=== PATIENT | female | born 1940 | race Caucasian/White ===

== ENCOUNTER 2017-02-10 07:48 | Day surgery (SDC) | payer MEDICARE, BC ==
[~2017-02-10 07:48] MED LIST: RINGERS SOLUTION,LACTATED 1,000 ML IV PRN
--- OUTSIDE RECORDS SUMMARY | 2017-02-10 09:01 | XMS REPORT | Continuity of Care Document ---
:1940 Author Organization [facility] ([facility]) Address [address] [place] [address] Phone [phone] Care Team Providers Name Role Phone Jamie Espino Primary Care Provider [phone] Source Comments This disclosure is being made pursuant to the Care Everywhere program, applicable federal and state laws, and may not contain all informaitonavailable regarding this patient.[facility] ([facility]) Active Allergies and Adverse Reactions No Known Allergies Current Medications Prescription Sig. Disp. Refills Start Date End Date Status OTHER 1 Tab daily. Vitamin Active D 1000 units acetaminophen 325 mg Take 1-2 Tabs by 60 Tab 2 2011 Active tablet mouth every 4 hours as needed for Pain. Do not exceed 4000 mg of total acetaminophen in 24 hours. Indications: Pain levothyroxine 25 mcg Take 1 Tab by mouth 12/21/2014 Active tablet daily albuterol (PROAIR inhale 1 puff by 05/16/2014 Active HFA) 90 inhalation route mcg/Actuation every 4 - 6 hours as inhaler needed budesonide-formotero inhale 2 puff by 05/16/2014 Active l (SYMBICORT) inhalation route 2 160-4.5 times every day in mcg/Actuation the morning and inhaler evening ezetimibe (ZETIA) 10 Take 1 Tab by mouth 05/16/2014 Active mg tablet daily warfarin 3 mg tablet take 2 tablet by 12/13/2014 Active oral route every day furosemide 40 mg Take 80 mg by mouth Active tablet 2 times daily colestipol 1 gram Take 4 g by mouth 3 Active tablet times daily. clonazePAM 1 mg 5 02/04/2016 Active tablet mirtazapine 30 mg 15 mg. 5 02/04/2016 Active tablet rOPINIRole 0.5 mg 11 02/04/2016 Active tablet atorvastatin 20 mg 10 mg daily. 11 05/04/2016 Active tablet potassium chloride Take 20 mEq by mouth 11 05/04/2016 Active 20 mEq tablet 2 times daily. metoPROLol succinate Take 1 tablet (25 mg 90 tablet 3 11/20/2016 Active 25 mg XL tablet total) by mouth daily. 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 08/06/2015 Overview: non-obstructive ostial LAD disease and ostial second diagonal disease managed medically Cath (30% Mid LM, 60% Ostial LAD, 70% Ostial D2, Right Dominant, LAD FFR 0.99) - 03/03/2011 Essential hypertension 08/06/2015 Paroxysmal atrial fibrillation 08/06/2015 S/P repair of ventral hernia 04/23/2011 Osteoarthritis 10/10/2009 Allergic rhinitis 10/09/2009 Diverticulitis 10/09/2009 Overview: April 2008 Pancreatitis 10/09/2009 Overview: May 2008 Asthma 10/09/2009 Hyperlipidemia 10/09/2009 Left bundle branch block 10/09/2009 Basal cell carcinoma 10/09/2009 Overview: 4 excision procedures, 1993 - 1996, Nose X2, eyebrow and arm Disc disease, degenerative, lumbar or lumbosacral 10/09/2009 Atypical ductal hyperplasia, 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 Overview: Biopsy 2007 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: 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 Resolved Problems Problem Noted Date Resolved Date VENTRAL HERNIA 11/27/2010 03/27/2011 Most Recent Encounters Date Type Specialty Providers Description 01/06/2017 Lab Requisition Pathology Lab Services, Dx: Basal cell Uidl carcinoma of skin of nose 11/20/2016 Refill Cardiac Rehabilitation Zain Lerner Dx: Bushra Sanchez MD atrial fibrillation (Primary Dx) Immunizations Name Dates Previously Given Next Due Influenza, unspecified 08/22/2009 Social History Tobacco Use Types Packs/Day Years Used Date Never Smoker Smokeless Tobacco: Never Used Tobacco Cessation:Counseling Given: No Comments: Alcohol Use Drinks/Week oz/Week Comments No Last Filed Vital Signs Vital Sign Reading Time Taken Blood Pressure 150/80 09/02/2016 2:50 PM CDT Pulse 72 09/02/2016 2:50 PM CDT Temperature 36.9 C (98.4 F) 01/14/2016 11:16 AM [employer] 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 Respiratory Rate 18 08/07/2015 11:22 AM CDT Height 1.676 m (5' 6") 08/07/2015 11:22 AM CDT Weight 100.699 kg (222 lb) 09/02/2016 2:50 PM CDT Body Mass Index 35.85 09/02/2016 2:50 PM CDT Oxygen Saturation 94% 05/11/2016 2:43 PM CDT Plan of Care Date Type Specialty Providers Description 09/15/2017 Appointment Heart and Vascular Zain Lerner, Subj: Appointment MD Scheduled [address] [place] [address] [phone] (Fax) Health Maintenance Due Date Last Done Comments Hepatitis B Vaccine (1 of 3 - Primary 1940 Series) Tdap Vaccine 1953 Lipid Disorder Screening 1960 Td Vaccine 1960 Colonoscopy 03/17/1992 Mammogram 05/19/2001 05/19/2000, 01/08/1999 Zoster Vaccine 2002 Osteoporosis Screening (DXA Bone Density) 2007 Pneumococcal Vaccine (1 of 2 - PCV13) 2007 Influenza Vaccine: Seasonal (#1) 06/22/2016 08/22/2009 Results from Last 3 Months DERMATOPATHOLOGY EXAM (01/04/2017 9:00 AM) Component Value Range Case Report Surgical Pathology Case: [id number] Authorizing Provider:Lab Services, [facility] Collected: 01/04/2017 09:00 AM Pathologist: Yemi Tapia MD Received: 01/06/2017 09:34 AM Specimen:Skin, other, specify, Nasal dorsum Diagnosis Skin, nasal dorsum, shave biopsy: Inverted follicular keratosis. I have personally reviewed this case and edited the report as necessary. Clinical Information Tissue source/site: Shave - nasal dorsum. Pertinent clinical history and findings: 3 mm erythematous papule. Clinical differential diagnosis: BCC. Gross Description A.Received in formalin, in a container labeled Shanda Galo, date of , and "Nasal dorsum", is a 0.4 x 0.3 x 0.1 cm white-benito shave biopsy.The specimen is inked, bisected and submittedentirely in A1. BNS/tkr Microscopic Description Sections of skin show well demarcated inverted papilloma with squamous eddies. Margins uninvolved. Performed by: Nohelia Barahona M.D., R4 Specimen Skin - Skin, other, specify
[2017-02-10 10:40] VITALS: BP 124/67
--- NOTE | 2017-02-10 17:46 | OR ---
Operative Report - Dictated Report Narrative: OPERATIVE REPORT DATE OF OPERATION: 02/10/2017 PREOPERATIVE DIAGNOSIS: No recent dedicated colon studies. Change in bowel habit POSTOPERATIVE DIAGNOSIS: Diverticulosis. Redundant colon OPERATION: Colonoscopy SURGEON: Domonique Manuel MD ANESTHESIA: KATIE Larson CRNA INDICATIONS FOR PROCEDURE: The patient is a 76-year-old female referred by Dr. Brittany Dave. Her last colonoscopy was in 2007. There is no family history of colon cancer. The patient has had a recent change in bowel habit requiring increased fiber to move her bowels. Recent CT scan shows diverticulosis. FINDINGS: Redundant colon requiring entire 160 cm of scope to reach the cecum. Significant diverticulosis NARRATIVE OF PROCEDURE: The patient was identified in the holding area, and prior to the administration of anesthetic, a multidisciplinary timeout was observed. With the patient in the left lateral position and after the administration of intravenous sedation, the perineum was inspected. There was no evidence of pilonidal disease or skin breakdown. The external appearance of the anus was normal. Sphincter tone was good. The flexible fiberoptic colonoscope was inserted into the rectum which was insufflated with air. The rectal mucosa and submucosal vascular pattern appeared normal, the prep was seen to be complete. The scope was advanced through the sigmoid colon, which contained numerous non-impacted noninflamed diverticular openings. The scope was advanced up the descending colon, and around the splenic flexure where the triangular haustral architecture of the transverse colon was seen. Using standard reduction maneuvers and gentle external manual compression on the abdomen, the scope was advanced across the transverse colon, around the hepatic flexure to the cecum, where the confluence of tenia and the ileocecal valve were identified. The mucosa at this level appeared normal. The scope was then slowly withdrawn in a circular fashion so that all aspects of colonic mucosa were inspected. The colon was capacious in character and redundant in course. The haustral architecture appeared well preserved throughout with no evidence of external compression. The mucosa and submucosal vascular pattern appeared normal, specifically there was no gross evidence to suggest colitis or inflammatory bowel disease and no AV malformations were seen. The diverticulosis was moderate in degree and confined primarily to the sigmoid colon. No polyps were encountered. The scope was gradually withdrawn to the level of the rectum. As much insufflated air as possible was removed. The scope was withdrawn from the patient and the procedure terminated. The patient tolerated the anesthetic and procedure well without complication and was transferred back to the ambulatory surgery area awake and in stable condition. The patient remained stable throughout a period of postoperative observation. She denied abdominal discomfort, was able to tolerate by mouth intake, and was up without assistance. I shared the operative findings with the patient and she was given copies of the photographs which appear in the medical record. She was discharged home with instructions not to engage in hazardous activity today , but may resume normal activity tomorrow, and advance diet as tolerated. She is to continue those medications as listed in the history and physical exam. It was recommended that she continue Benefiber twice daily with the addition of MiraLAX if necessary to achieve a more frequent complete stooling pattern. RECOMMENDATION: Colon surveillance in 10 years depending upon findings and symptoms Reviewed and electronically signed
== END 2017-02-10 07:49 | disposition home or self-care (01) ==
LOC: AMB 07:48
PROVIDERS: ATTEND Surgery
PROC: 0DJD8ZZ Inspection of Lower Intestinal Tract, Via Natural or Artificial Opening Endoscopic (ICD-10-PCS; principal; 2017-02-10 09:00)
DX: R19.4 Change in bowel habit (principal); K57.30 Diverticulosis of large intestine without perforation or abscess without bleeding; J45.909 Unspecified asthma, uncomplicated; I48.91 Unspecified atrial fibrillation; I25.10 Atherosclerotic heart disease of native coronary artery without angina pectoris; E11.9 Type 2 diabetes mellitus without complications; I10 Essential (primary) hypertension; E78.5 Hyperlipidemia, unspecified; D64.9 Anemia, unspecified; Z68.34 Body mass index [BMI] 34.0-34.9, adult
CPT/HCPCS: 45378; G0121